=== PATIENT | male | born 1985 | race Two or more races ===

== ENCOUNTER 2022-01-02 00:36 | Emergency (ER) | payer OTHER ==
[~2022-01-02] VITALS: Ht 175.3 cm; Wt 72.6 kg
[2022-01-02] MEDS ORDERED: ORPHENADRINE C100 MG PO (04:21)
[2022-01-02] MEDS ORDERED: IBU600 MG PO (04:21)
== END 2022-01-02 04:30 ==
LOC: ER 00:36
DX: R07.89 Other chest pain (principal); Z88.0 Allergy status to penicillin; Z20.822 Contact with and (suspected) exposure to COVID-19